=== PATIENT | female | born 1960 | race Caucasian/White ===

== ENCOUNTER → 2017-10-07 | Outpatient (CLI) | payer BC ==
[~2017-10-07] MED LIST: DEPAKOTE DELAY500 MG; FISH OIL PO; GLUCOSAMINE PO; LAMISIL PO; MULTI VITAMIN PO; PANTOPRAZOLE SO40 MG PO; PHILLIPS'400 MG/5 M PO; PREMARIN0.625 MG PO; XYZAL5 MG PO; Z.0.BENICAR20 MG; Z.0.LAMICTAL100 MG
--- NOTE | 2017-10-07 11:49 | Diagnostic Imaging Report ---
Left knee MRI without contrast. History: Knee pain. Decreased range of motion. Lateral meniscus tear. Pain not responding to conservative management. Comparison: None. Technique: Multiplanar multi-sequence MRI of the knee without contrast. Findings: Medial compartment: There is degeneration of the medial meniscus with an undersurface obliquely oriented tear at the posterior horn best seen on sagittal series 3 image 30. The medial compartmental articular cartilage surfaces are thin with regions of fraying and fissuring. There are peripheral marginal osteophyte. The medial collateral ligament complex is intact. Lateral compartment: There is degeneration and fraying of the lateral meniscus. The lateral compartmental articular cartilage surfaces are thinned with regions of fraying and fissuring. There are peripheral marginal osteophytes. The lateral collateral ligament complex is intact. Intercondylar notch: There is degeneration of the anterior cruciate ligament with reactive change at the tibial insertion site. The ACL and PCL are otherwise intact. Patellofemoral compartment: There are regions of full-thickness articular cartilage loss in the patellofemoral compartment with underlying bone marrow edema most pronounced at the lateral trochlea and lateral patellar facet. Extensor mechanism: The quadriceps and patellar tendons are normal. Other findings: There is a joint effusion and synovitis. There is no acute fracture, subluxation or avascular necrosis. IMPRESSION: Medial meniscus tear with associated degenerative arthrosis in the medial compartment of the knee. Degeneration and fraying of the lateral meniscus. No lateral meniscus tear is seen. There is mild degenerative arthrosis in the lateral compartment of the knee. Regions of full-thickness articular cartilage loss in the patellofemoral compartment with underlying bone marrow edema. Signed by: Dr. Ry Glynn M.D. on 10/07/2017 11:46 AM
== END ==
LOC: MRI 07:33
PROVIDERS: ATTEND Specialist
DX: S83.262A Peripheral tear of lateral meniscus, current injury, left knee, initial encounter (principal)

== ENCOUNTER → 2017-10-28 | Day surgery (SDC) | payer BC ==
[~2017-10-28] MED LIST changes: +BUPIVACAINE HCL 0.5% INJ 30 ML VIAL INJ ONE; +BYSTOLIC10 MG PO; +CEFAZOLIN SOD 2 GM/D5W 50ML 50 ML IV ONE; +DEXAMETHASONE SOD PHOS INJ 4 MG/ML VIAL ONE; +FAMOTIDINE 20 MG/2 ML VIAL IV ONE; +FENTANYL CITRATE/PF 100MCG/2 ML INJ ONE; +FISH OIL 1,2001 EACH PO; +KETOROLAC TROMETHAMINE 30 MG/ML VIAL ONE; +LAMICTAL100 MG PO; +LIDOCAINE HCL 2% LOCAL INJ 5 ML SDV VIAL INJ ONE; +MAXALT10 MG PO; +MIDAZOLAM HCL 2 MG/2 ML VIAL ONE; +MORPHINE SULFATE 5 MG/ML VIAL ONE; +ONDANSETRON HCL INJ 2 MG/ML VIAL ONE; +PROPOFOL IV EMULSION 10 MG/ML 20 ML VIAL ONE; +SEVOFLURANE INHAL SOLN 250 ML PEN BTL ONE; +TRULANCE PO; +VITAMIN B-121000 MCG PO; +[UNRECOGNIZED DRUG - OTHER] TOP
--- NOTE | 2017-10-29 10:12 | Operative Report ---
DATE OF PROCEDURE: October 28, 2017 PREOPERATIVE DIAGNOSES 1. Left knee medial meniscus tear. 2. Left knee lateral meniscus tear. 3. Left knee degenerative joint disease in the knee. POSTOPERATIVE DIAGNOSIS: OPERATIONS/PROCEDURES PERFORMED 1. Patient underwent left knee examination under anesthesia. 2. Left knee arthroscopy. 3. Left knee partial medial meniscectomy. 4. Left knee partial lateral meniscectomy. 5. Left knee chondroplasty of the patella, the trochlea, the medial femoral condyle, the medial tibial plateau, the lateral femoral condyle, and the lateral tibial plateau. AMMUNITION STORAGE SUPERINTENDENT: There was no assistant director of admissions. ANESTHESIA: General endotracheal intubation anesthesia. IV FLUIDS: As per the anesthesia record. BRIEF DESCRIPTION OF OPERATIVE PROCEDURE: Ms. Baig was taken to the operating room and placed in supine position on the operating table. Following induction of general anesthesia as well as endotracheal intubation, the patient's left lower extremity was examined under anesthesia. She was found to have a mild effusion within the knee joint, but an otherwise ligamentously stable knee. The patient's lower extremity was prepped and draped in standard surgical fashion. A 2-portal technique was used to provide this patient arthroscopic evaluation of the knee joint. Examination of the suprapatellar pouch and medial and lateral gutters found no evidence of loose bodies. There was; however, evidence of chondromalacia of the patellar and trochlear surfaces. Scope was advanced to the medial compartment. Examination of medial compartment demonstrated a tear in the posterior horn of the medial meniscus. There was also chondromalacia of the articulating surfaces. A combination of biting forceps and a motorized shaver was used to resect the torn portion of the meniscus. Chondroplasties of the medial femoral condyle and medial tibial plateau were performed at this time. Scope was advanced into the intracondylar notch. The anterior cruciate ligament was identified and found to be intact. Scope was advanced to the lateral compartment and examination of the lateral compartment demonstrated chondromalacia of the articulating surfaces. A combination of biting forceps and a motorized shaver was used to resect the torn portion of the meniscus. Chondroplasties of the lateral femoral condyle and lateral tibial plateau were performed at this time. Scope was then placed in the suprapatellar pouch and chondroplasties of the patella and trochlea were performed. The knee was deflated of sterile normal saline. Each of the portal sites were closed using 4-0 nylon suture. The portal sites as well as the knee itself were then injected with 0.5% Marcaine with epinephrine. Sterile dressings were applied, and the patient was awakened and taken to postanesthesia care unit in stable condition. Job#: [id number] BRENDA
== END | disposition home or self-care (01) ==
LOC: OR 11:07
PROVIDERS: ATTEND Specialist
DX: S83.222A Peripheral tear of medial meniscus, current injury, left knee, initial encounter (principal); S83.262A Peripheral tear of lateral meniscus, current injury, left knee, initial encounter; M17.12 Unilateral primary osteoarthritis, left knee; M22.42 Chondromalacia patellae, left knee; G40.909 Epilepsy, unspecified, not intractable, without status epilepticus; I10 Essential (primary) hypertension; K21.9 Gastro-esophageal reflux disease without esophagitis; K29.70 Gastritis, unspecified, without bleeding; Z01.810 Encounter for preprocedural cardiovascular examination; Z68.41 Body mass index [BMI] 40.0-44.9, adult
CPT/HCPCS: 29880; 93005 ×2; J1100; J1885; J2001; J2250; J2270; J2405

== ENCOUNTER → 2019-02-10 | Day surgery (SDC) | payer BC ==
[~2019-02-10] MED LIST changes: -BUPIVACAINE HCL 0.5% INJ 30 ML VIAL INJ ONE; -CEFAZOLIN SOD 2 GM/D5W 50ML 50 ML IV ONE; -DEXAMETHASONE SOD PHOS INJ 4 MG/ML VIAL ONE; -FAMOTIDINE 20 MG/2 ML VIAL IV ONE; +FUROSEMIDE20 MG; +GLUCAGON FOR INJ 1 MG VIAL ONE; +HYOSCYAMINE SULFATE 0.5 MG/ML INJ ONE; -KETOROLAC TROMETHAMINE 30 MG/ML VIAL ONE; -LIDOCAINE HCL 2% LOCAL INJ 5 ML SDV VIAL INJ ONE; +LOSARTAN POTASS25 MG; -MORPHINE SULFATE 5 MG/ML VIAL ONE; -ONDANSETRON HCL INJ 2 MG/ML VIAL ONE; +PHENTERMINE H37.5 M1 PO; +POTASSIUM CHLO10 MEQ; +PROPOFOL IV EMULSION 10 MG/ML 50 ML VIAL ONE; -SEVOFLURANE INHAL SOLN 250 ML PEN BTL ONE
--- OUTSIDE RECORDS SUMMARY | 2019-02-10 06:16 | XMS REPORT ---
Author Author [facility] Address Unknown Phone Unavailable Care Team Providers Care Supply Crib Attendant Name Role Phone MERCEDEZ GIRON Unavailable Unavailable Payers Payer Name Policy Type Policy Number Effective Date Expiration Date Problems This patient has no known problems. Allergies, Adverse Reactions, Alerts Allergy Name Allergy Type Status Severity Reaction(s) Onset Date Inactive Date Treating Clinician Comments No Known Contrast Allergies DA Active U 2007-10-19 00:00:00 No Known Food Allergies DA Active U 2007-10-19 00:00:00 No Known Other Allergies DA Active U 2007-10-19 00:00:00 TEGRETOL DA Active U 2007-10-19 00:00:00 TOPAMAX DA Active U 2007-10-19 00:00:00 carbamazepine DA Active U 2005-02-17 00:00:00 topiramate DA Active U 2005-02-17 00:00:00 Medications This patient has no known medications. Results Test Description Test Time Test Comments Text Results Atomic Results Result Comments MRI KNEE LEFT WO [place] [address] Patient Name: GRISEL BHATTI MR #: [id number] : 1960 Age/Sex: 57/F Req #: [id number] Adm Physician: Ordered by: MERCEDEZ GIRON MD Report #: [id number] Location: MRI Room/Bed: Procedure: [id number] MRI/MRI KNEE LEFT WO Exam Date: Exam Time: REPORT STATUS: Signed Left knee MRI without contrast. History: Knee pain. Decreased range of motion. Lateral meniscus tear. Pain not responding to conservative management. Comparison: None. Technique: Multiplanar multi-sequence MRI of the knee without contrast. Findings: Medial compartment: There is degeneration of the medial meniscus with an undersurface obliquely oriented tear at the posterior horn best seen on sagittal series 3 image 30. The medial compartmental articular cartilage surfaces are thin with regions of fraying and fissuring. There are peripheral marginal osteophyte. The medial collateral ligament complex is intact. Lateral compartment: There is degeneration and fraying of the lateral meniscus. The lateral compartmental articular cartilage surfaces are thinned with regions of fraying and fissuring. There are peripheral marginal osteophytes. The lateral collateral ligament complex is intact. Intercondylar notch: There is degeneration of the anterior cruciate ligament with reactive change at the tibial insertion site. The ACL and PCL are otherwise intact. Patellofemoral compartment: There are regions of full-thickness articular cartilage loss in the patellofemoral compartment with underlying bone marrow edema most pronounced at the lateral trochlea and lateral patellar facet. Extensor mechanism: The quadriceps and patellar tendons are normal. Other findings: There is a joint effusion and synovitis. There is no acute fracture, subluxation or avascular necrosis. IMPRESSION: Medial meniscus tear with associated degenerative arthrosis in the medial compartment of the knee. Degeneration and fraying of the lateral meniscus. No lateral meniscus tear is seen. There is mild degenerative arthrosis in the lateral compartment of the knee. Regions of full-thickness articular cartilage loss in the patellofemoral compartment with underlying bone marrow edema. Signed by: Dr. Ry Glynn M.D. on 10/07/2017 11:46 AM Dictated By: RY GLYNN MD, MD 114 Transcribed By: ABBY on 10/07/17 1146 COPY TO: MERCEDEZ GIRON MD
--- OUTSIDE RECORDS SUMMARY | 2019-02-10 06:16 | XMS REPORT | Summary of Care ---
Author Author COLBY Kramer, ERLINDA Organization Unknown Address Unknown Phone Unavailable Care Team Providers Care Train Controller Name Role Phone COLBY Kramer, ERLINDA Unavailable Unavailable VIANEY SAMANO DO Unavailable Unavailable COLBY PATEL CO, ERLINDA Unavailable Unavailable Unavailable Unavailable Functional Status Name Dates Details Functional status health issues are not documented Status: Name Dates Details Cognitive status health issues are not documented Status: Problems Name Dates Details CHERELLE (obstructive sleep apnea) (327.23, G47.33) Status: Active Medications Name Dates Details LaMICtal XR 200 MG Oral Tablet Extended Release 24 Hour TAKE 1 TABLET TWICE DAILY Active Losartan Potassium 25 MG Oral Tablet TAKE 1 TABLET DAILY. * Refills: 0 Active 30 Tablet Bottle Pantoprazole Sodium 40 MG Oral Tablet Delayed Release TAKE 1 TABLET TWICE DAILY * Refills: 0 Active Xyzal 5 MG TABS TAKE 1 TABLET DAILY. * Refills: 0 Active Bystolic 20 MG Oral Tablet TAKE 1 TABLET DAILY. * Refills: 0 Active Phentermine HCl - 37.5 MG Oral Tablet Take half tablet daily * Refills: 0 Active Maxalt 10 MG Oral Tablet TAKE 1 TABLET NEEDED * Refills: 0 Active Allergies and Adverse Reactions Name Dates Details TEGretol TABS (Allergy) Status: Active Topamax (Allergy) Status: Active Past Medical History Name Dates Details History of Epilepsy (345.90, G40.909) Status: Resolved Procedures Procedure Dates Details Procedures not documented Immunization Name Dates Details Immunizations not documented Social History Name Dates Details Unknown if ever smoked Vital Signs Date Test Result Details [id number] BP Systolic 142 mm[Hg] Status: Comments: Location: LUE; Position: Sitting BP Diastolic 83 mm[Hg] Status: Comments: Location: LUE; Position: Sitting Height 68 in Status: Weight 264 lb Status: Body Mass Index Calculated 40.14 kg/m2 Status: Body Surface Area Calculated 2.3 m2 Status: Heart Rate 60 /min Status: Results Date Description Value Details Results not documented Plan of Care Name Dates Details Planned Observations Planned Goals not documented Planned Encounters Appointment; ERLINDA BOWMAN M.D. On: 15-Apr-2019 11:00 Interventions Provided Supplies* CPAP Machine; To Be Done: 14 Jan 2019 Discussion/Summary* The patient has concerns about how much mild obstructive sleep apnea may be contributing to her cognitive function. I discussed with her extensively that this would be a hard question to answer unless she starts using CPAP consistently for at least 3-4 months. This will be a prerequisite even for her to undergo neuropsychological testing. She has a CPAP machine. I have given her a prescription for new supplies. We also showed her online resources to be able to purchase them. A total of 25 minutes was spent in this encounter, of which more than half the time was spent discussing the relationship between sleep apnea and cognition, the need for sustained trial of CPAP before assessing its efficacy, the possibility that she may be completely read of CHERELLE if she loses weight substantially. We also spent time providing resources for CPAP supplies. The patient commits to using CPAP. She will follow-up with me depending on her experience. Instructions Name Dates Details Instructions not documented Encounters Appointment; ERLINDA BOWMAN M.D. Encounter Diagnosis: Problem not documented On: 14-Jan-2019 9:00
[2019-02-10 09:40] VITALS: BP 122/89
--- NOTE | 2019-02-10 16:39 | Operative Report ---
DATE OF PROCEDURE: 02/10/2019 SURGEON: Alex Cesar MD PROCEDURES: 1. Esophagogastroduodenoscopy with esophageal dilatation and biopsies. 2. Colonoscopy with polypectomy. INDICATIONS FOR EGD: Dysphagia and acid reflux. INDICATIONS FOR SURVEILLANCE COLONOSCOPY: Personal history of colon polyps, father with colon cancer. MEDICATIONS: The patient was done under MAC, please see anesthesiologist's note. PROCEDURE IN DETAIL: With the patient in left lateral decubitus position, a flexible fiberoptic Olympus gastroscope was introduced into the esophagus under direct visualization without any difficulty. There was some patchy erythema noted in distal esophagus. A minute nodule was noted in the distal esophagus that was removed per the cold biopsy forceps. Esophagus was then dilated to size 52-Uzbek Clemens. The scope was then advanced with ease into the stomach. Mucosa overlying the antrum and the body revealed some patchy intense erythema and moderate edema. Biopsies were obtained and sent to stain for H pylori. Pylorus was of normal contour and shape, it was intubated with ease and the scope was advanced all the way to the second portion of the duodenum. The scope was then withdrawn slowly and biopsies were obtained from the proximal second portion and duodenal bulb to rule out sprue. The scope was then withdrawn back into the stomach and retroflexed and mucosa overlying the fundus and cardia appeared to be within normal limits. The scope was then straightened out, it was subsequently withdrawn. The patient tolerated procedure well. IMPRESSION: 1. Distal esophagitis, mild. 2. Distal esophageal nodule, minute, removed per cold biopsy forceps. 3. Esophageal stricture, dilated to size 52-Uzbek Clemens. 4. Gastritis, biopsied. Biopsies sent to stain for Helicobacter pylori. 5. Rule out sprue. PLAN: Follow up histology. Continue Protonix 40 mg one p.o. before meals b.i.d. The patient was then turned around after adequate lubrication of the anal canal. Flexible fiberoptic Olympus colonoscope was inserted into the rectum with ease and advanced all the way to the cecum. It was then withdrawn slowly. Mucosa overlying the cecum appeared to be within normal limits. One polyp was hot biopsied from the ascending colon. The transverse appeared to be within normal limits. One polyp was snared from the descending colon. One polyp was hot biopsied from the sigmoid colon. The rectum appeared to be within normal limits. The scope was then retroflexed into the distal rectum and small internal hemorrhoids were noted, none of which was actively bleeding. The scope was then straightened out, it was subsequently withdrawn. The patient tolerated procedure well. IMPRESSION: 1. Ascending colon polyp, hot biopsied. 2. Descending colon polyp, snared. 3. Sigmoid colon polyp, hot biopsied. 4. Internal hemorrhoids, none actively bleeding. PLAN: Follow up histology. Initiate high-fiber, low-fat diet. Initiate high-fiber supplement. Start Linzess 145 mcg one p.o. q.a.m. before meals. The patient might benefit from a followup colonoscopy in 3 years. Alex Cesar MD [facility] [place] /[id number] cc: Nicolas Figueroa DO
== END | disposition home or self-care (01) ==
LOC: OR 06:13
PROVIDERS: ATTEND Internal Medicine Gastroenterology
DX: K29.70 Gastritis, unspecified, without bleeding (principal); K63.5 Polyp of colon; K22.2 Esophageal obstruction; K22.8 Other specified diseases of esophagus; K20.9 Esophagitis, unspecified; K21.9 Gastro-esophageal reflux disease without esophagitis; K59.00 Constipation, unspecified; K64.8 Other hemorrhoids; G47.30 Sleep apnea, unspecified; I10 Essential (primary) hypertension; R00.1 Bradycardia, unspecified; F17.210 Nicotine dependence, cigarettes, uncomplicated; Z01.810 Encounter for preprocedural cardiovascular examination; Z80.0 Family history of malignant neoplasm of digestive organs
CPT/HCPCS: 43239; 43450; 45384; 45385; 93005; J1610; J1980; J2250; J2704 ×2; 45378

== ENCOUNTER → 2022-04-15 | Day surgery (SDC) | payer BC ==
[2022-04-11 09:28] LABS: BASOPHILS # (AUTO) 0.1 (0.0-0.1); EOSINOPHILS # (AUTO) 0.2 (0.0-0.4); EOSINOPHILS % 3.1 % (0.0-6.0); HEMATOCRIT 41.3 % (34.2-44.1); HEMOGLOBIN 13.6 g/dL (12.0-16.0); LYMPHOCYTES # (AUTO) 1.7 (1.0-3.2); LYMPHOCYTES % 24.4 % (18.0-39.1); MEAN CORPUSCULAR HEMOGLOBIN 38.5 pg (28-32); MEAN CORPUSCULAR HGB CONC 32.9 g/dL (31-35); MONOCYTES # (AUTO) 0.4 (0.2-0.8); MONOCYTES % 6.2 % (4.4-11.3); NEUTROPHILS # (AUTO) 4.6 (2.1-6.9); NEUTROPHILS % 64.6 % (38.7-80.0); PLATELET COUNT 393 x10e3/uL (140-360); RED BLOOD COUNT 3.53 x10e6/uL (3.6-5.1); RED CELL DISTRIBUTION WIDTH 12.3 % (11.7-14.4)
[2022-04-11 09:40] LABS: INR 0.96; PROTHROMBIN TIME 13.7 seconds (11.9-14.5)
[2022-04-11 09:41] LABS: PARTIAL THROMBOPLASTIN TIME 30.9 seconds (23.8-35.5)
[2022-04-11 15:18] LABS: PLATELET ESTIMATE ADEQUATE; PLATELET MORPHOLOGY COMMENT NORMAL
[2022-04-11 15:19] LABS: RBC MORPHOLOGY COMMENT NORMAL
[~2022-04-15] MED LIST changes: +ASPIRIN81 MG PO; +DEXAMETHASONE SOD PHOS INJ 4 MG/ML SDV ONE; -FENTANYL CITRATE/PF 100MCG/2 ML INJ ONE; +HYDREA500 MG PO; +LIDOCAINE HCL 2% LOCAL INJ 5 ML SDV VIAL INJ ONE; +LOSARTAN-HCTZ1 EAC1 PO; +METOCLOPRAMIDE HCL 10 MG/2ML VIAL ONE; -MIDAZOLAM HCL 2 MG/2 ML VIAL ONE; +ONDANSETRON HCL INJ 2MG/ML 2ML 2 MG/ML VIAL ONE; +POVIDONE IODINE 0.05% 0.05 % ML PO ONE; -PROPOFOL IV EMULSION 10 MG/ML 50 ML VIAL ONE; +SIMETHICONE 40 MG/0.6 ML BTL ONE
[2022-04-15 14:50] VITALS: BP 118/67
== END | disposition home or self-care (01) ==
LOC: OR 11:31
PROVIDERS: ATTEND Internal Medicine Gastroenterology
DX: K59.09 Other constipation (principal); Z86.010 Personal history of colon polyps; K58.9 Irritable bowel syndrome, unspecified; K64.8 Other hemorrhoids; K21.9 Gastro-esophageal reflux disease without esophagitis; Z71.3 Dietary counseling and surveillance; G40.909 Epilepsy, unspecified, not intractable, without status epilepticus; J45.909 Unspecified asthma, uncomplicated; I10 Essential (primary) hypertension; Z71.89 Other specified counseling; R00.1 Bradycardia, unspecified; M06.9 Rheumatoid arthritis, unspecified; M19.90 Unspecified osteoarthritis, unspecified site; E66.01 Morbid (severe) obesity due to excess calories; Z88.6 Allergy status to analgesic agent; Z88.8 Allergy status to other drugs, medicaments and biological substances; Z01.810 Encounter for preprocedural cardiovascular examination; Z01.812 Encounter for preprocedural laboratory examination; Z20.822 Contact with and (suspected) exposure to COVID-19; Z79.82 Long term (current) use of aspirin; Z79.899 Other long term (current) drug therapy; Z68.39 Body mass index [BMI] 39.0-39.9, adult; Z87.891 Personal history of nicotine dependence; Z80.0 Family history of malignant neoplasm of digestive organs
CPT/HCPCS: 0223U; 36415; 45378; 85025; 85610; 85730; 93005; J2405; J1100; J1610; J1980; J2001; J2765

== ENCOUNTER → 2022-12-25 | Outpatient (CLI) | payer BC ==
[~2022-12-25] MED LIST changes: -DEXAMETHASONE SOD PHOS INJ 4 MG/ML SDV ONE; -GLUCAGON FOR INJ 1 MG VIAL ONE; -HYOSCYAMINE SULFATE 0.5 MG/ML INJ ONE; -LIDOCAINE HCL 2% LOCAL INJ 5 ML SDV VIAL INJ ONE; -METOCLOPRAMIDE HCL 10 MG/2ML VIAL ONE; -ONDANSETRON HCL INJ 2MG/ML 2ML 2 MG/ML VIAL ONE; -POVIDONE IODINE 0.05% 0.05 % ML PO ONE; -PROPOFOL IV EMULSION 10 MG/ML 20 ML VIAL ONE; -SIMETHICONE 40 MG/0.6 ML BTL ONE
== END ==
LOC: RAD 11:20
PROVIDERS: ATTEND Family Medicine
DX: M54.50 Low back pain, unspecified (principal)
CPT/HCPCS: 72110